=== PATIENT | male | born 1965 | race Caucasian/White ===

== ENCOUNTER 2019-12-22 23:29 | Emergency (ER) | payer OTHER ==
[2019-12-22] MEDS ORDERED: ZESTRIL40 M1 PO (23:40)
[2019-12-22 23:52] LABS: EOS # 0.2 (0.04-0.40); EOS % 2.2 % (0.0-4.0); HEMATOCRIT 43.5 % (42.0-52.0); HEMOGLOBIN 14.4 g/dL (13.5-18.0); MEAN CELL VOLUME 93 fl (78-100); MEAN CORPUSCULAR HEMOGLOBIN 31 pg (27-31); MEAN CORPUSCULAR HGB CONC 33 g/dL (33-37); MEAN PLATELET VOLUME 8.8 fl (7.4-10.4); MONO # 0.8 (0.20-0.80); NEU # 6.4 (1.40-6.50); PLATELET COUNT 357 K/mm3 (130-400); RED BLOOD COUNT 4.67 M/mm3 (4.20-5.60); RED CELL DISTRIBUTION WIDTH 13.2 % (11.5-14.5); WHITE BLOOD COUNT 9.5 K/mm3 (4.8-10.8)
[2019-12-23 00:03] LABS: ALBUMIN 4.2 g/dL (3.5-5.0)
[2019-12-23 00:04] LABS: POTASSIUM 3.6 mmol/L (3.5-5.1)
[2019-12-23 00:06] LABS: TOTAL PROTEIN 7.4 g/dL (6.4-8.3)
[2019-12-23 00:08] LABS: TOTAL BILIRUBIN 0.6 mg/dL (0.2-1.2)
[2019-12-23] MEDS ORDERED: SILDENAFIL CITR50 MG PO (00:14)
[2019-12-23 01:50] VITALS: BP 171/124
[2019-12-23] MEDS ORDERED: NORCO 325 MG-51 TA1 PO ×2 (10:14)
== END 2019-12-23 01:50 ==
LOC: ED 23:29
PROVIDERS: Nurse Practitioner Family
DX: S01.81XA Laceration without foreign body of other part of head, initial encounter (principal); S20.419A Abrasion of unspecified back wall of thorax, initial encounter; I25.10 Atherosclerotic heart disease of native coronary artery without angina pectoris; I10 Essential (primary) hypertension; F10.129 Alcohol abuse with intoxication, unspecified; F19.10 Other psychoactive substance abuse, uncomplicated; R40.2410 Glasgow coma scale score 13-15, unspecified time; F17.210 Nicotine dependence, cigarettes, uncomplicated; Z91.19 Patient's noncompliance with other medical treatment and regimen; Y04.0XXA Assault by unarmed brawl or fight, initial encounter; Y92.59 Other trade areas as the place of occurrence of the external cause
CPT/HCPCS: 90715; J3411; J3490; J7030; L0172